=== PATIENT | female | born 1945 | race Caucasian/White ===

== ENCOUNTER 2025-06-30 08:10 | Outpatient (REF) | payer MEDICARE, SELFPAY ==
--- NOTE | 2025-06-30 07:35 | NASSEP_PTH ---
PATIENT: Gemini Henning LOC: [facility] U#:[id number] AGE/SX: 79/F ROOM: RE06/30/[address]: Lang Dupont MD : 1945 BED: DIS: 06/30/2025 SPEC #: [id number] RECD: 06/30/25 18:17 STATUS: ABIOLA REQ #: [id number] ENDY: 06/30/25 07:[address]: Lang Dupont DEPT: Surgical Specimen RECD BY: Mamta Rob ENTERED: 06/30/25 18:18 SP TYPE: NASSEP TANNER DR: Unknown,Unknown Tissues: 1 - NASAL SEPTUM Procedures: GROSS LEVEL 1 Comments: [id number]
== END 2025-06-30 08:11 | disposition home or self-care (01) ==
LOC: LBN 08:10
PROVIDERS: Visit Provider Otolaryngology
DX: J34.89 Other specified disorders of nose and nasal sinuses (principal)
CPT/HCPCS: 88300